=== PATIENT | male | born 1955 | race Caucasian/White ===

== ENCOUNTER 2021-02-03 14:58 | Emergency (ER) | payer OTHER ==
[2021-02-03 16:16] LABS: HEMOGLOBIN 17.3 gm/dl (14.0-17.5); RED BLOOD COUNT 5.34 M/UL (4.20-5.50); WHITE BLOOD COUNT 7.9 K/UL (4.5-11.0)
[2021-02-03 16:52] LABS: BUN/CREATININE RATIO 16 (0-10)
== END 2021-02-03 22:48 | disposition short-term general hospital (02) ==
LOC: ER1 14:58
PROVIDERS: Emergency Medicine
DX: R07.89 Other chest pain (principal); R55 Syncope and collapse; F17.210 Nicotine dependence, cigarettes, uncomplicated; Z20.822 Contact with and (suspected) exposure to COVID-19
CPT/HCPCS: 70450; 71045; 80053; 81001; 82550; 82553; 82962; 83735; 83874; 84484; 85025; 93005; 99285; U0002